=== PATIENT | male | born 1950 | race Caucasian/White ===

== ENCOUNTER → 2017-07-03 | Emergency (ER) | payer MEDICARE, BC ==
[~2017-07-03] VITALS: Ht 172.7 cm; Wt 102.1 kg
[~2017-07-03] MED LIST: ACETAMINOPHEN325 M1 PO; ALEVE220 M1 PO; AMLODIPINE BESY10 MG PO; AMLODIPINE-BEN1 EAC1 PO; ASPIR 8181 MG PO; ATORVASTATIN CA10 MG PO; BUSPIRONE HCL5 MG PO; CLONIDINE HCL0.1 MG PO; CYCLOBENZAPRINE10 MG PO; DEPAKOTE SPRIN125 MG PO; DIATRIZOATE MEGL/DIATRIZOA SOD 120 ML BTL PO ONE; DIATRIZOATE MEGL/DIATRIZOA SOD 30 ML BTL PO ONE; FAMOTIDINE20 MG PO; IOPAMIDOL 300MG/ML 100 ML INFUS..BTL IV ONE; LIDOCAINE HCL 2% JELLY 5 ML TUBE ONE; METFORMIN HCL500 MG PO; METOPROLOL TART50 MG PO; MULTI-VITAMIN1 EACH; NYSTATIN1 EAC1; SODIUM BICARBO650 MG PO; THIAMINE HCL100 MG PO; TRAMADOL-ACETAMI1 EA PO; [UNRECOGNIZED DRUG - OTHER] PO
--- NOTE | 2017-07-03 14:35 | Diagnostic Imaging Report ---
PROCEDURE:REPLACE GASTR TUBE PERCUTANEOUS COMPARISON:None. Preprocedure diagnosis: Altered mental status, dislodged gastrostomy catheter Post procedure diagnosis: Altered mental status, functional gastrostomy catheter Supervisor Data Processing: Adarsh Briseno M.D. Sedation/anesthesia: None Additional medications: None Fluoroscopy time: 1.3 minutes Air Kerma: 91.2 mGy Contrast used: 30 cc Isovue-300 Estimated blood loss: Minimal Blood products administered: None Specimens: None Implants/grafts: 18 [place]ankan balloon retention gastrostomy catheter Complications: No immediate Condition at completion of procedure: Stable Disposition: Return to emergency room FINDINGS: Emergent consent was obtained by client technical support associate and documented in the medical record. The patient was placed in the supine position on the fluoroscopic table. The midepigastric region and the existing gastrostomy stoma were prepped and draped in standard sterile fashion. A 5 Sri [place]ankan angled catheter was gently advanced through the subcutaneous tract and into the stomach under fluoroscopic guidance, with injection of dilute contrast material confirming intragastric positioning. A 0.035 inch Amplatz wire was then advanced through the catheter under fluoroscopic guidance. The catheter was removed over the wire and the tract was dilated. Then, an 18 [place]ankan balloon retention gastrostomy catheter was advanced [id number] and into the stomach under fluoroscopic guidance. The retention balloon was inflated with 6 cc of sterile saline and the catheter was retracted to the anterior gastric wall. The wire was removed. Injection of contrast material confirmed appropriate positioning of the gastrostomy catheter. The catheter was then flushed copiously with sterile saline. The patient tolerated the procedure well without immediate complication. CONCLUSION: Successful fluoroscopic guided replacement of a dislodged percutaneous gastrostomy catheter (18 [place]ankan, balloon retention). The new catheter may be used immediately. Dictated by: Adarsh Briseno M.D. on 07/03/2017 at 14:37 Electronically approved by: Adarsh Briseno M.D. on 07/03/2017 at 14:37
--- NOTE | 2017-07-03 14:35 | Diagnostic Imaging Report ---
PROCEDURE:REPLACE GASTR TUBE PERCUTANEOUS COMPARISON:None. Preprocedure diagnosis: Altered mental status, dislodged gastrostomy catheter Post procedure diagnosis: Altered mental status, functional gastrostomy catheter Lead Java Programmer: Adarsh Briseno M.D. Sedation/anesthesia: None Additional medications: None Fluoroscopy time: 1.3 minutes Air Kerma: 91.2 mGy Contrast used: 30 cc Isovue-300 Estimated blood loss: Minimal Blood products administered: None Specimens: None Implants/grafts: 18 Tanzanian balloon retention gastrostomy catheter Complications: No immediate Condition at completion of procedure: Stable Disposition: Return to emergency room FINDINGS: Emergent consent was obtained by computer support specialist instructor and documented in the medical record. The patient was placed in the supine position on the fluoroscopic table. The midepigastric region and the existing gastrostomy stoma were prepped and draped in standard sterile fashion. A 5 Tanzanian angled catheter was gently advanced through the subcutaneous tract and into the stomach under fluoroscopic guidance, with injection of dilute contrast material confirming intragastric positioning. A 0.035 inch Amplatz wire was then advanced through the catheter under fluoroscopic guidance. The catheter was removed over the wire and the tract was dilated. Then, an 18 Tanzanian balloon retention gastrostomy catheter was advanced [id number] and into the stomach under fluoroscopic guidance. The retention balloon was inflated with 6 cc of sterile saline and the catheter was retracted to the anterior gastric wall. The wire was removed. Injection of contrast material confirmed appropriate positioning of the gastrostomy catheter. The catheter was then flushed copiously with sterile saline. The patient tolerated the procedure well without immediate complication. CONCLUSION: Successful fluoroscopic guided replacement of a dislodged percutaneous gastrostomy catheter (18 Tanzanian, balloon retention). The new catheter may be used immediately. Dictated by: Adarsh Briseno M.D. on 07/03/2017 at 14:37 Electronically approved by: Adarsh Briseno M.D. on 07/03/2017 at 14:37
== END ==
LOC: ER 10:29
DX: Z43.1 Encounter for attention to gastrostomy (principal); R41.82 Altered mental status, unspecified
CPT/HCPCS: 49450; C1887; C1892; J2001; Q9967; 74470; Q9963

== ENCOUNTER 2018-04-11 21:00 | Inpatient (IN) | payer BC, MEDICARE ==
[~2018-04-11] VITALS: Ht 172.7 cm; Wt 100.4 kg
[~2018-04-11 21:00] MED LIST changes: +AMLODIPINE BESY10 MG PEG; -AMLODIPINE BESY10 MG PO; -DIATRIZOATE MEGL/DIATRIZOA SOD 120 ML BTL PO ONE; -DIATRIZOATE MEGL/DIATRIZOA SOD 30 ML BTL PO ONE; -IOPAMIDOL 300MG/ML 100 ML INFUS..BTL IV ONE; -LIDOCAINE HCL 2% JELLY 5 ML TUBE ONE; +METOPROLOL TART50 MG PEG; -METOPROLOL TART50 MG PO
[2018-04-11] MEDS ORDERED: AZITHROMYCIN 500MG/NS 250 ML 250 ML IV STA (21:02)
[2018-04-11] MEDS ORDERED: ACETAMINOPHEN 1000 MG/100 ML IV STA (21:02)
[2018-04-11] MEDS ORDERED: CEFTRIAXONE SOD 1 GM/NS 50 ML 50 ML IV ONE (21:15)
[2018-04-11] MEDS ORDERED: SODIUM CHLORIDE 0.9% 1000ML 1,000 ML IV ONE ×2 (21:15)
[2018-04-11 21:51] LABS: BASOPHILS # (AUTO) 0.1 (0.0-0.1); BASOPHILS % 0.4 % (0.0-1.0); HEMATOCRIT 35.1 % (38.2-49.6); HEMOGLOBIN 11.7 g/dL (14.0-18.0); LYMPHOCYTES # (AUTO) 0.9 (1.0-3.2); LYMPHOCYTES % 6.4 % (18.0-39.1); MEAN CORPUSCULAR HEMOGLOBIN 27.7 pg (28-32); MEAN CORPUSCULAR HGB CONC 33.3 g/dL (31-35); MEAN CORPUSCULAR VOLUME 83.2 fL (81-99); MONOCYTES # (AUTO) 0.6 (0.2-0.8); MONOCYTES % 4.5 % (4.4-11.3); NEUTROPHILS # (AUTO) 11.8 (2.1-6.9); NEUTROPHILS % 88.1 % (38.7-80.0); PLATELET COUNT 351 x10e3/uL (140-360); RED BLOOD COUNT 4.22 x10e6/uL (4.3-5.7); RED CELL DISTRIBUTION WIDTH 14.7 % (11.7-14.4)
[2018-04-11 22:00] LABS: CLARITY,URINE CLOUDY (CLEAR); COLOR,URINE YELLOW (YELLOW); KETONES,URINE NEGATIVE (NEGATIVE); LEUKOCYTE ESTERASE ,URINE 2+ (NEGATIVE); NITRITE,URINE POSITIVE (NEGATIVE); PROTEIN,URINE DIPSTICK 1+ (NEGATIVE)
[2018-04-11 22:01] LABS: AMORPHOUS SEDIMENT,URINE FEW (FEW); BACTERIA,URINE MANY /HPF; BILIRUBIN,URINE NEGATIVE (NEGATIVE); EPITHELIAL CELLS,URINE MANY /LPF; URINE UROBILINOGEN 1 mg/dL (0.2 - 1); WBC,URINE (MAN) >50 /HPF (0-5); YEAST,URINE MODERATE
[2018-04-11 22:06] LABS: ALANINE AMINOTRANSFERASE 29 IU/L (0-55); ALBUMIN/GLOBULIN RATIO 0.5 (0.8-2.0); ALKALINE PHOSPHATASE 112 IU/L (40-150); ANION GAP 14.7 mmol/L (8-16); BLOOD UREA NITROGEN 24 mg/dL (7-26); BUN/CREATININE RATIO 39 (6-25); CALCIUM 8.4 mg/dL (8.4-10.2); CARBON DIOXIDE 23 mmol/L (22-29); CHLORIDE 89 mmol/L (98-107); CREATINE KINASE 328 IU/L (30-200); CREATININE, SERUM 0.62 mg/dL (0.72-1.25); EST GLOMERULAR FILTRATION RATE > 60 ML/MIN (60-); GLUCOSE 211 mg/dL (74-118); POTASSIUM 4.7 mmol/L (3.5-5.1); SODIUM 122 mmol/L (136-145)
--- NOTE | 2018-04-11 23:24 | Diagnostic Imaging Report ---
CHEST SINGLE (PORTABLE), 04/11/2018 9:02 PM Technique: CHEST SINGLE (PORTABLE) Comparison: None available. Clinical history: Fever, low oxygen saturation Findings: See Impression Impression: Limited by portable technique, low lung volumes, motion and overlying chin. Low lung volumes result in accentuation of the cardiomediastinal silhouette and bibasilar vascular crowding/atelectasis. Consider upright PA and lateral or repeat with improved inspiratory effort when feasible. Signed by: Dr Desiree Iglesias MD on 04/11/2018 11:20 PM
[2018-04-11] MEDS ORDERED: ONDANSETRON HCL INJ 2MG/ML 2ML 2 MG/ML VIAL IV PRN (23:45)
[2018-04-11] MEDS ORDERED: DEXTROSE 50% SYRINGE 50 ML IV PRN (23:45)
[2018-04-11] MEDS ORDERED: ACETAMINOPHEN 1000 MG/100 ML IV PRN (23:45)
[2018-04-12] VITALS (14 sets, daily range): BP systolic 90–111; BP diastolic 54–78
[2018-04-12] MEDS: SODIUM CHLORIDE 0.9% 1000ML 1,000 ML IV SCH ×4 (00:37→23:36)
[2018-04-12] MEDS: CEFEPIME 2 GM/NS 0.9% 100 ML 100 ML IV SCH ×2 (00:37→11:25)
--- NOTE | 2018-04-12 08:10 | NUR ---
Patient repositioned to avoid further skin breakdown and new brief applied. Patient placed on wedge and already has waffle underneath. Will continue to monitor patient.
[2018-04-12] MEDS: INSULIN REGULAR, HUMAN 100 UNIT/1 ML 3ML VIAL SQ SCH ×4 (08:17→21:00)
[2018-04-12 08:35] LABS: BASOPHILS % 0.2 % (0.0-1.0); HEMATOCRIT 30.2 % (38.2-49.6); HEMOGLOBIN 10.8 g/dL (14.0-18.0); LYMPHOCYTES # (AUTO) 0.5 (1.0-3.2); LYMPHOCYTES % 5.6 % (18.0-39.1); MEAN CORPUSCULAR HEMOGLOBIN 29.1 pg (28-32); MEAN CORPUSCULAR HGB CONC 35.8 g/dL (31-35); MEAN CORPUSCULAR VOLUME 81.4 fL (81-99); MONOCYTES # (AUTO) 0.4 (0.2-0.8); MONOCYTES % 4.6 % (4.4-11.3); NEUTROPHILS # (AUTO) 7.8 (2.1-6.9); PLATELET COUNT 285 x10e3/uL (140-360); RED BLOOD COUNT 3.71 x10e6/uL (4.3-5.7); RED CELL DISTRIBUTION WIDTH 14.8 % (11.7-14.4)
[2018-04-12 08:51] LABS: ALANINE AMINOTRANSFERASE 25 IU/L (0-55); ALBUMIN 1.8 g/dL (3.5-5.0); ALBUMIN/GLOBULIN RATIO 0.5 (0.8-2.0); ALKALINE PHOSPHATASE 85 IU/L (40-150); ANION GAP 12.9 mmol/L (8-16); BLOOD UREA NITROGEN 20 mg/dL (7-26); BUN/CREATININE RATIO 39 (6-25); CALCIUM 7.7 mg/dL (8.4-10.2); CARBON DIOXIDE 21 mmol/L (22-29); CHLORIDE 97 mmol/L (98-107); CREATININE, SERUM 0.51 mg/dL (0.72-1.25); EST GLOMERULAR FILTRATION RATE > 60 ML/MIN (60-); GLUCOSE 146 mg/dL (74-118); POTASSIUM 3.9 mmol/L (3.5-5.1); SODIUM 127 mmol/L (136-145)
[2018-04-12] MEDS ORDERED: ATORVASTATIN CA10 MG PO (09:34)
[2018-04-12] MEDS ORDERED: DOCUSATE SODIU100 MG PEG (09:34)
[2018-04-12] MEDS ORDERED: BUDESONIDE0.5 MG/2 M NEB (09:34)
[2018-04-12] MEDS ORDERED: ASPIR 8181 MG PEG (09:34)
[2018-04-12] MEDS ORDERED: BUSPIRONE HCL5 MG PEG (09:34)
[2018-04-12] MEDS ORDERED: HUMALOG100 UNIT/1 SC ×2 (09:34→10:23)
[2018-04-12] MEDS ORDERED: PANTOPRAZOLE SO40 MG PEG (09:42)
[2018-04-12] MEDS ORDERED: DIGOXIN125 MCG PEG (09:42)
[2018-04-12] MEDS ORDERED: FUROSEMIDE40 MG PEG (09:42)
[2018-04-12] MEDS ORDERED: CITALOPRAM HBR20 MG PEG (09:42)
[2018-04-12] MEDS ORDERED: NAMENDA10 MG PEG (09:42)
[2018-04-12] MEDS ORDERED: GLIMEPIRIDE2 MG PEG (09:42)
[2018-04-12] MEDS ORDERED: FENOFIBRATE145 MG PEG (09:42)
[2018-04-12] MEDS ORDERED: KLOR-CON M2020 MEQ PEG (09:42)
[2018-04-12] MEDS ORDERED: METFORMIN HCL500 MG PEG (09:42)
[2018-04-12] MEDS ORDERED: RISPERIDONE0.5 MG PO (09:42)
[2018-04-12] MEDS ORDERED: ZYPREXA5 MG PEG ×2 (09:44)
[2018-04-12] MEDS ORDERED: ZINC SULFATE220 M1 PEG (09:44)
[2018-04-12] MEDS ORDERED: THIAMINE H100 MG/1 M PEG (10:23)
[2018-04-12] MEDS ORDERED: PEPCID20 MG PEG (10:23)
[2018-04-12] MEDS ORDERED: SODIUM BICARBO325 MG PEG (10:23)
[2018-04-12] MEDS ORDERED: METOPROLOL TART50 MG PEG (10:23)
[2018-04-12] MEDS ORDERED: ACETAMINOPHEN325 M1 PEG (10:23)
[2018-04-12] MEDS ORDERED: VITAMIN C500 M1 PEG (10:23)
[2018-04-12] MEDS ORDERED: ULTRAM50 MG PEG (10:23)
[2018-04-12] MEDS ORDERED: POLYETHYLENE GLY1 GM PEG (10:23)
[2018-04-12] MEDS ORDERED: NYSTATIN1 EAC1 TOP (10:23)
[2018-04-12] MEDS ORDERED: MULTIPLE VITAM1 EAC1 PEG (10:23)
[2018-04-12] MEDS ORDERED: VALPROIC A250 MG/5 M PEG (10:23)
[2018-04-12] MEDS ORDERED: NORVASC5 MG PEG (10:23)
[2018-04-12] MEDS ORDERED: DAKIN'S473 M1 (10:23)
[2018-04-12 10:52] LABS: BAND NEUTROPHILS % (MANUAL) 2 %; LYMPHOCYTES % (MANUAL) 3 % (19-48); NEUTROPHILS % (MANUAL) 95 % (40-74); PLATELET ESTIMATE ADEQUATE; PLATELET MORPHOLOGY COMMENT NORMAL; RBC MORPHOLOGY COMMENT NORMAL
--- NOTE | 2018-04-12 11:32 | NUR ---
Patient repositioned at this time to avoid further skin breakdown. No distress noted. Will continue to monitor patient.
[2018-04-12] MEDS ORDERED: VANCOMYCIN 1GM/NS 250 ML 250 ML IV SCH (12:30)
--- NOTE | 2018-04-12 14:03 | History and Physical ---
CHIEF COMPLAINT: Fever. HISTORY OF PRESENT ILLNESS: This is a 67-year-old white man who was transferred from a local penitentiary namely [facility] to [facility] because of high fever. In the emergency room, patient was found to have white blood cell count of 13,400 with 88% segmented neutrophils. This morning, the patient had white blood count of 8700 with 95% segmented neutrophils and 2% bands. Urinalysis revealed cloudy yellow urine with 4+ blood, 1+ protein, 2+ leukocyte esterase, less than 20 red blood cells per high-powered field, greater than 50 white blood cells per high-powered field, and many bacteria. Patient's sodium was 122. Patient's BUN and creatinine was 24 and 0.62 respectively. Patient's lactic acid level was elevated at 19.1, which is high end of normal. Influenza type A and B antigen was negative. The patient had chest x-ray done in the emergency room, which revealed low lung volumes resulting in bibasilar vascular crowding/atelectasis. The patient was admitted for further evaluation and treatment. REVIEW OF SYSTEMS GENERAL: Fever for the last few days according to the penitentiary. His mentation has not changed. He has advanced dementia from an old stroke. HEENT: No documentation of any facial drooping. CARDIOVASCULAR: No documentation of any hypoxia from the penitentiary. GI: No documentation of any nausea, vomiting, or diarrhea. : The patient has indwelling Anguiano catheter and was diagnosed with urinary tract infection. NEUROMUSCULAR: Old stroke with dense right hemiparesis. He is bedbound. ALLERGIES: PENICILLIN. HOME MEDICATIONS 1. Acetaminophen 650 mg every 6 hours p.r.n. fever or pain. 2. Amlodipine 10 mg daily. 3. Vitamin C 500 mg daily. 4. Aspirin 81 mg daily. 5. Atorvastatin 20 mg every night. 6. Budesonide nebulized treatment every 12 hours. 7. BuSpar 5 mg b.i.d. 8. Clonidine 0.1 mg every night p.r.n. high blood pressure. 9. Docusate 100 mg daily. 10. Famotidine 20 mg daily. 11. Humalog insulin sliding scale. 12. Metoprolol tartrate 50 mg daily. 13. Multivitamin once daily. 14. Nystatin powder to affected area daily. 15. Zyprexa 2.5 mg at bedtime and every 6 hours as needed for psychosis. 16. Pantoprazole 40 mg daily. 17. Polyethylene glycol 17 grams b.i.d. 18. Sodium bicarbonate 325 mg t.i.d. 19. Thiamine 100 mg daily. 20. Tramadol 50 mg every 6 hours. 21. Valproic acid 250 mg b.i.d. 22. Zinc sulfate 220 mg daily. PAST MEDICAL HISTORY 1. Cerebrovascular disease (old stroke with dense right hemiparesis). 2. Severe vascular dementia. 3. History of chronic alcoholism. 4. Obesity, BMI 34. 5. Type 2 diabetes. 6. Hypothyroid disease. 7. GERD. 8. Hyperlipidemia. PAST SURGICAL HISTORY: PEG tube placement. FAMILY HISTORY: Unknown. SOCIAL HISTORY: He apparently has family members, but he is currently living in a local penitentiary, namely [facility]. He was a former heavy alcohol drinker. PHYSICAL EXAMINATION GENERAL: He is arousable. He is nonverbal. Does not appear to be in any distress. VITAL SIGNS: Height 5 feet 8 inches, weight is 225 pounds, BMI 34, blood pressure is 105/56, pulse 72, respiratory rate 22, oxygen saturation 109% on room air. Temperature currently is 98.8. On arrival to the emergency room, it was 100.5. INTEGUMENT: Skin is warm and dry. He has slight pallor. Patient has a large stage 4 sacral decubitus ulcer. HEENT: Anicteric sclerae with moist mucous membranes. He has no facial drooping. He is aphasic. NECK: Supple. No evidence of jugular venous distention. CARDIOVASCULAR: Distant heart sounds. Tachycardic. Regular rhythm. LUNGS: Patient has crackles and rhonchi in the bilateral lung manning, more pronounced in the left. ABDOMEN: Soft. He has PEG tube in place. EXTREMITIES: He has contractures to the left upper and lower extremity. Stage 4 sacral decubitus ulcer with sacral bone exposure and copious malodorous drainage. NEUROLOGIC: He has obvious right hemiparesis. He is bedbound. DIAGNOSES 1. Sepsis from pneumonia likely gram negative xiao. 2. Urinary tract infection. 3. Hyponatremia. 4. Stage 4 sacral decubitus ulcer. 5. Cerebrovascular disease (old cerebrovascular accident with dense right hemiparesis). 6. Severe vascular dementia. 7. History of previous heavy alcohol drinking. PLAN 1. Admit to intensive care unit. 2. Intravenous fluids. 3. Follow up blood and urine cultures. 4. Intravenous antibiotics. 5. Intravenous saline. 6. Order central line placement since patient may require intravenous vasopressors. 7. I spoke at length with the patient's adult daughter who is his medical power of document review attorney, namely Ms. Belkis Sandoval. 8. The adult daughter states at this time the patient is a full resuscitation status, but she will discuss this issue with her other siblings. I spent an hour and 15 minutes in the care of this intensive care unit patient. Job#: [id number] HAILEY MTDD
--- NOTE | 2018-04-12 16:15 | NUR ---
paged dr. schaffer to notify about positive blood cultures, also unable to place picc d/t contractures. ir consult ordered for tmrw
[2018-04-13] VITALS (22 sets, daily range): BP systolic 93–125; BP diastolic 42–68
--- NOTE | 2018-04-13 01:45 | NUR ---
MD Rothman paged for renewal of IV acetaminophen, awaiting response.
[2018-04-13] MEDS: CEFEPIME 2 GM/NS 0.9% 100 ML 100 ML IV SCH ×2 (01:55→12:17)
[2018-04-13] MEDS: VANCOMYCIN 1GM/NS 250 ML 250 ML IV SCH ×2 (03:48→15:36)
--- NOTE | 2018-04-13 04:20 | NUR ---
MD Rothman paged second time for renewal of IV acetaminophen, awaiting response.
[2018-04-13 04:55] LABS: BASOPHILS % 0.3 % (0.0-1.0); EOSINOPHILS % 0.2 % (0.0-6.0); LYMPHOCYTES # (AUTO) 0.7 (1.0-3.2); MEAN CORPUSCULAR HEMOGLOBIN 29.4 pg (28-32); MEAN CORPUSCULAR HGB CONC 34.5 g/dL (31-35); MEAN CORPUSCULAR VOLUME 85.3 fL (81-99); MONOCYTES # (AUTO) 0.5 (0.2-0.8); MONOCYTES % 5.8 % (4.4-11.3); NEUTROPHILS # (AUTO) 7.8 (2.1-6.9); PLATELET COUNT 295 x10e3/uL (140-360); RED CELL DISTRIBUTION WIDTH 14.8 % (11.7-14.4)
--- NOTE | 2018-04-13 05:00 | NUR ---
MD Rothman called back. Notified of continuing moans and FLACC scores, stable BP, UOP averaging 25 mL/hr vs input, groin yeast, current microbiology results, description of sacral decub, and leaking PEG tube. gave analgesia orders, states that he will review antibiotics, IVF, and other orders when he rounds. Addendum: 04/13/18 at 0723 by Vickie Nicolas RN states that GI and ID may be consulted later, but not until he sees further labs
[2018-04-13 05:07] LABS: INR 1.08
[2018-04-13 05:14] LABS: ALANINE AMINOTRANSFERASE 28 IU/L (0-55); ALBUMIN 1.8 g/dL (3.5-5.0); ALBUMIN/GLOBULIN RATIO 0.5 (0.8-2.0); ALKALINE PHOSPHATASE 80 IU/L (40-150); ANION GAP 13.4 mmol/L (8-16); BLOOD UREA NITROGEN 16 mg/dL (7-26); BUN/CREATININE RATIO 32 (6-25); CALCIUM 7.8 mg/dL (8.4-10.2); CARBON DIOXIDE 21 mmol/L (22-29); CHLORIDE 98 mmol/L (98-107); EST GLOMERULAR FILTRATION RATE > 60 ML/MIN (60-); GLUCOSE 84 mg/dL (74-118); POTASSIUM 3.4 mmol/L (3.5-5.1); SODIUM 129 mmol/L (136-145)
[2018-04-13] MEDS ORDERED: ACETAMINOPHEN 325 MG SUPP PR PRN (05:15)
[2018-04-13] MEDS: HYDROMORPHONE 2MG/ML 2 MG/ML ML IV PRN ×3 (05:25→23:07)
[2018-04-13] MEDS: INSULIN REGULAR, HUMAN 100 UNIT/1 ML 3ML VIAL SQ SCH ×3 (06:35→17:10)
[2018-04-13] MEDS: SODIUM CHLORIDE 0.9% 1000ML 1,000 ML IV SCH ×3 (07:41→23:36)
--- NOTE | 2018-04-13 10:38 | Diagnostic Imaging Report ---
CHEST SINGLE (PORTABLE), 04/13/2018 7:00 AM Technique: CHEST SINGLE (PORTABLE) Comparison: 04/11/2018 Clinical history: Pneumonia Findings: See Impression Impression: Limited portable technique with motion. No significant interval change. Very low lung volumes accentuate the cardiomediastinal silhouette and result in bilateral vascular crowding/atelectasis. Signed by: Dr Desiree Iglesias MD on 04/13/2018 6:42 AM
--- NOTE | 2018-04-13 15:20 | NUR ---
WOUND CARE CONSULTATION: INITIAL EVALUATION Patient admitted from [facility] for Fever, Hyponatremia, UTI. Sacral Wound Stage IV. HX: Contractures, PEG+, Anguiano. IV ABX in progress LABS: WBC9.12 HGB10 HCT29 NEUT%85 Alb1.8 GLU84 WC Consulted for Sacral Stage IV PU. Delmer Score 9 Alternating Pressure Mattress in Place Strict PUP. Patient Visit: - Patient in Bed awake-unable to make needs known. - Contracted x4 - HOB elevated 30 degrees. - PEG + -Left Foot 5th Met Head - non-blanchable redness. -Abdominal Fold - Dermatologic Rash - Milk white residue with erythema. -Sacral - Stage IV- Pressure Ulcer- palpable bone, 20% slough with scattered areas of DTI. 80% granulation/ fibrotic tissue. -Left Hip - Non- Blanchable Redness. IMPRESSION: 1. Left Foot 5th Met Head - Stage I - Pressure Ulcer - POA. 2. Abdominal Fold - Dermatologic Rash - Yeast. 3. Sacral - Stage IV- Pressure Ulcer- POA 4. Left Hip - Stage 1 Pressure Ulcer - POA RECOMMENDATION: 1. Left Foot 5th Met Head - Stage I - Pressure Ulcer - POA: - Cleanse wound with NS and 4x4 Gauze. - Apply Venelex Ointment and cover with Allevyn Foam Heel Dressing Daily 2. Abdominal Fold - Dermatologic Rash - Yeast. - Cleanse area with Mild Soap and Water and Pat Dry Thoroughly. - Apply Nystatin Powder BID and PRN Soiling. 3. Sacral - Stage IV- Pressure Ulcer- POA - Cleanse wound with NS and 4x4 Gauze. - Apply Medihoney, then Lightly pack with Algisite and cover with Allevyn Foam Sacrum Dressing Daily 4. Left Hip - Stage 1 Pressure Ulcer - POA: - Cleanse wound with NS and 4x4 Gauze. - Apply Venelex Ointment and cover with Allevyn Foam Heel Dressing Daily 5. Continue Alternating Pressure Air Mattress 6. Continue Bilateral Heel Protectors - Offload Heels with Pillows while in bed. 7. Turn and Reposition every 2 hours ( "Bridge"./ offload sacrum with pillows/ foam wedges to reduce pressure to sacrum) Thank you for consulting with [facility]. DC PLANNING: [facility]. Addendum: 04/13/18 at 1536 by Demarco Jose RN Amended: Links added. Addendum: 04/15/18 at 1556 by Demarco Jose RN Re: Michelle not on formulary. Change TX requested. Sacral Wound - Started- Silvadene Soaked 4x4 gauze and Cover with Allevyn Foam Sacrum Dressing Daily.
--- NOTE | 2018-04-13 15:23 | Diagnostic Imaging Report ---
EXAMINATION: CHEST XRAY LINE PLACEMENT INDICATION: Right IJ central line placement. COMPARISON: Chest radiograph 04/13/2018. FINDINGS: TUBES and LINES: Interval placement of a right IJ non-tunneled central line which terminates in the expected location of the right atrium, accounting for hypoinflation. LUNGS: Lungs are hypoinflated. Patchy bibasilar opacities, likely atelectasis. No evidence of lobar consolidation or pulmonary edema. PLEURA: No pleural effusion or pneumothorax. HEART AND MEDIASTINUM: The cardiomediastinal silhouette is unremarkable. BONES AND SOFT TISSUES: No acute osseous abnormality. UPPER ABDOMEN: No free air under the diaphragm. IMPRESSION: Interval placement of a right IJ non-tunneled central line which terminates in the expected location of the right atrium, accounting for hypoinflation. Suggest catheter retraction by approximately 2-3 cm. No evidence of pneumothorax. Signed by: Dr. Luda Mathur MD on 04/13/2018 3:19 PM
[2018-04-13] MEDS: NYSTATIN 15 GM POWDER UD BTL TOP SCH (17:11)
--- NOTE | 2018-04-13 17:23 | Diagnostic Imaging Report ---
EXAMINATION: CHEST XRAY LINE PLACEMENT INDICATION: Right IJ catheter COMPARISON: April 13, 2018 at 1433 hours FINDINGS: TUBES and LINES: Prior placement of a right IJ non-tunneled central line which terminates in the expected location of the right atrial/superior vena cava junction, accounting for hypoinflation. LUNGS: Lungs are hypoinflated. Patchy bibasilar opacities, likely atelectasis. No evidence of lobar consolidation or pulmonary edema. PLEURA: No pleural effusion or pneumothorax. HEART AND MEDIASTINUM: The cardiomediastinal silhouette is unremarkable. BONES AND SOFT TISSUES: No acute osseous abnormality. UPPER ABDOMEN: No free air under the diaphragm. IMPRESSION: Prior placement of a right IJ non-tunneled central line which terminates in the expected location of the right atrial/superior vena cava junction, accounting for hypoinflation. No evidence of pneumothorax. Signed by: Dr. Augustin Manning M.D. on 04/13/2018 5:20 PM
--- NOTE | 2018-04-13 18:35 | Diagnostic Imaging Report ---
Procedure: Right internal jugular non-tunneled central venous catheter placement with ultrasound guidance electrostatic paint operator: Luda Mathur MD Pre-operative diagnosis: Requiring central venous access Post-operative diagnosis: Status post central venous access Sedation: Local Additional Medications: Lidocaine 1% for local anesthesia Estimated blood loss: None Specimens: None Implants: 7 Fr x 16 cm triple lumen non-tunneled central venous catheter TECHNIQUE/FINDINGS: Informed consent was obtained from the patient and documented in the medical record after discussion of risks and benefits. The patient was placed in the supine position. Preliminary sonographic evaluation of the right neck confirmed a patent and compressible right internal jugular vein. A permanent sonographic image was stored for the medical record. The neck was then prepped and draped in a standard sterile fashion. Subsequently, 1% lidocaine was infiltrated into the skin and subcutaneous tissues for local anesthesia. Then under continuous sonographic guidance, a 21 gauge needle was advanced into the right internal jugular vein and an .018'' wire was placed. A 5 Fr micropuncture sheath was placed and the existing wire was exchanged for an .035'' Amplatz wire. The tract was sequentially dilated. Then, a 7 Fr x 16 cm triple lumen central venous catheter was advanced. The wire was then removed. Each lumen was tested and showed adequate bidirectional flow. The catheter was secured to the skin with Monocryl, flushed with saline, and covered by a sterile dressing. No evidence of immediate complication. IMPRESSION: Placement of a right IJ non-tunneled triple lumen central venous catheter with ultrasound guidance as above. Signed by: Dr. Luda Mathur MD on 04/13/2018 6:32 PM
[2018-04-14] VITALS (16 sets, daily range): BP systolic 91–113; BP diastolic 50–69
[2018-04-14] MEDS: CEFEPIME 2 GM/NS 0.9% 100 ML 100 ML IV SCH ×2 (00:37→12:06)
[2018-04-14] MEDS: SODIUM CHLORIDE 0.9% 1000ML 1,000 ML IV SCH ×3 (02:08→23:38)
[2018-04-14] MEDS: VANCOMYCIN 1GM/NS 250 ML 250 ML IV SCH ×2 (03:47→14:57)
[2018-04-14] MEDS: INSULIN REGULAR, HUMAN 100 UNIT/1 ML 3ML VIAL SQ SCH ×4 (06:00→18:00)
[2018-04-14] MEDS: HYDROMORPHONE 2MG/ML 2 MG/ML ML IV PRN ×3 (06:20→19:59)
[2018-04-14] MEDS: NYSTATIN 15 GM POWDER UD BTL TOP SCH ×2 (06:32→17:09)
[2018-04-14 07:02] LABS: BASOPHILS % 0.4 % (0.0-1.0); EOSINOPHILS % 0.4 % (0.0-6.0); HEMATOCRIT 28.4 % (38.2-49.6); HEMOGLOBIN 9.2 g/dL (14.0-18.0); LYMPHOCYTES % 11.6 % (18.0-39.1); MEAN CORPUSCULAR HEMOGLOBIN 27.8 pg (28-32); MEAN CORPUSCULAR HGB CONC 32.4 g/dL (31-35); MEAN CORPUSCULAR VOLUME 85.8 fL (81-99); MONOCYTES # (AUTO) 0.5 (0.2-0.8); MONOCYTES % 6.3 % (4.4-11.3); NEUTROPHILS # (AUTO) 6.6 (2.1-6.9); NEUTROPHILS % 80.6 % (38.7-80.0); PLATELET COUNT 295 x10e3/uL (140-360); RED BLOOD COUNT 3.31 x10e6/uL (4.3-5.7); RED CELL DISTRIBUTION WIDTH 14.9 % (11.7-14.4)
[2018-04-14 07:23] LABS: ANION GAP 12.8 mmol/L (8-16); BLOOD UREA NITROGEN 14 mg/dL (7-26); BUN/CREATININE RATIO 30 (6-25); CALCIUM 7.5 mg/dL (8.4-10.2); CARBON DIOXIDE 21 mmol/L (22-29); CHLORIDE 99 mmol/L (98-107); CREATININE, SERUM 0.46 mg/dL (0.72-1.25); EST GLOMERULAR FILTRATION RATE > 60 ML/MIN (60-); GLUCOSE 70 mg/dL (74-118); SODIUM 130 mmol/L (136-145)
[2018-04-14 07:35] LABS: POTASSIUM 2.8 mmol/L (3.5-5.1)
--- NOTE | 2018-04-14 07:55 | NUR ---
Dr Dunlap paged about low potassium. awaiting return call.
[2018-04-14] MEDS ORDERED: POTASSIUM CHLORIDE 20MEQ/100ML 100 ML IV ONE (09:00)
[2018-04-14] MEDS: POTASSIUM CHLORIDE 20MEQ/15ML UDC NG SCH ×3 (12:07→17:09)
--- NOTE | 2018-04-14 12:23 | NUR ---
tube feed started at 20cc/hr and will increase as patient tolerates.
--- NOTE | 2018-04-14 14:14 | NUR ---
ORDER RECEIVED FOR LT[facility] EVAL. PT UNABLE TO SPEAK. [facility]PO[facility] IS PT'S DTR, CANDIS DIEZ @ [phone]. LEFT BUSINESS CARD AT THE BEDSIDE. CALL MADE TO CANDIS DIEZ. EXPLAINED THE PURPOSE OF THE CALL. STATES SHE WAS AWARE OF LTAC EVAL AND WOULD LIKE FOR HER FATHER TO GO TO [facility] [address]. CHOICE LETTER WAS SIGNED AND COSIGNED BY MILAGROS MANZO. CONTACTED [facility] FOR EVAL.
--- NOTE | 2018-04-14 14:36 | NUR ---
Nutrition Intervention Note RD Recommendation(s) for Physician: - Recommend TF of Glucerna 1.2 at 20 ml/hr, advance as tolerated to goal rate of 60 ml/hr (to provide 1728 kcal and 86 gm protein). - Water flushes and fluid management per MD. - Consider Hardy 1 packet BID to promote wound healing. - Recommend Vitamin C and Zinc Sulfate to promote wound healing. Plan of Care: RD following, TF rec's, monitoring for tolerance and adequacy Nutrition reason for involvement: Nutrition Risk Trigger RD Assessment 04/14: 67 YOM admitted from [facility] for fever, pt seen today per PEG on admit and requiring EN. Pt with hx of severe dementia and no family at bedside at time of visit, unable to obtain nutrition hx. Wound care assessment noted, pt with multiple wounds upon admit. Pt discussed during am rounds. Chart reviewed. TF rec's provided and discussed with RN. Will monitor and continue to follow. Principal Problems/Diagnoses: fever, hyponatremia, UTI PMH: CVA with R HP, severe vascular dementia, DM2, HLD, GERD, hypothyroidism GI: WDL Skin: sacral stage IV PU, L hip stage I PU, L foot 5th metatarsal stage I PU Labs: 04/14: Na 130, K 2.8, BUN 14, Cr 0.46, Gluc 70, POC Gluc 74-79 Meds: K replacement, abx, insulin, zofran IVF: NS at 125 ml/hr Ht: 225 lb Wt: 68 in BMI: 34.2 IBW: 154 lb Malnutrition Evaluation (04/14/18) The patient does not meet criteria for a specified degree of malnutrition at this time. Will re-evaluate at follow-up as appropriate. Nutrition Prescription (Diet Order): NPO Estimated Nutritional Needs: 7209-3844 calories/day (22-25 kcal/kg IBW) 70-105 g protein/day (1.5-2 g pro/kg IBW) Diet Adequacy: Not meeting calorie needs, Not meeting protein needs Diet Education Needs Assessment: Diet education not indicated, patient on temporary/transition diet. Pt on EN per PEG at [facility]. Nutrition Care Level: Mod Nutrition Diagnosis: Inadequate energy and protein intake related to impaired gastric passage as evidenced by PEG upon admit requiring EN. Goal: Patient will meet 75-100% of estimated needs by follow up Progress: N/A Interventions: Composition, Rate, Route, Liquid supplement, Multivitamin/mineral supplement therapy, Collaboration with other providers Monitoring/Evaluation: Total energy intake, Total protein intake, Formula/Solution, Liquid supplement, Prescription medication Signed: Leidy Arango RD, [facility], [facility]
[2018-04-14] MEDS: BALSAM PERU/CASTOR OIL 60 GM OINT...G. TP SCH (17:09)
--- NOTE | 2018-04-14 17:44 | NUR ---
called director rebecca about hospital not having medihoney in stock. she instructed me not to use xenaderm as exchange and would get a hold of nurse on site and have hime come make adjustments to treatment. awaiting further instruction. all other wound care done with exception of sacrum.
--- NOTE | 2018-04-14 22:20 | NUR ---
Report called to [facility] on MS2. Pt taken upstairs on bed, no VSS, no changes noted
--- NOTE | 2018-04-14 22:28 | NUR ---
RECEIVED PT FROM ICU TO ROOM 204 VIA HOSPITAL BED.NO S/S OF ACUTE DISTRESS NOTED.PT ON 2 LPM VIA NC.VITAL SIGNS CHECKED.PT HAS RIGHT IJ TRIPLE LUMEN INTACT AND PATENT.PT ALSO HAS PIV TO LEFT HAND INTACT AND PATENT.PEG TUBE INTACT WITH GLUCERNA 1.2 RUNNING AT 30CC/HR.RESIDUAL CHECKED AT THIS TIME,NONE NOTED.PT HAS BREWER CATH DRAINING CLEAR LIGHT KAYE URINE.AIR PUMP APPLIED TO MATTRESS.BED POSITIONED IN THE LOWEST/LOCKED.CALL LIGHT WITHIN REACH.WILL CONTINUE TO MONITOR.
[2018-04-15] VITALS (7 sets, daily range): BP systolic 93–128; BP diastolic 57–74
[2018-04-15] MEDS: HYDROMORPHONE 2MG/ML 2 MG/ML ML IV PRN ×2 (02:00→11:58)
[2018-04-15] MEDS: VANCOMYCIN 1GM/NS 250 ML 250 ML IV SCH ×2 (03:33→16:12)
[2018-04-15 05:25] LABS: BASOPHILS % 0.5 % (0.0-1.0); EOSINOPHILS # (AUTO) 0.1 (0.0-0.4); EOSINOPHILS % 1.1 % (0.0-6.0); HEMATOCRIT 27.9 % (38.2-49.6); HEMOGLOBIN 9.2 g/dL (14.0-18.0); LYMPHOCYTES # (AUTO) 1.1 (1.0-3.2); LYMPHOCYTES % 17.2 % (18.0-39.1); MEAN CORPUSCULAR HEMOGLOBIN 28.3 pg (28-32); MEAN CORPUSCULAR VOLUME 85.8 fL (81-99); MONOCYTES # (AUTO) 0.4 (0.2-0.8); MONOCYTES % 6.2 % (4.4-11.3); NEUTROPHILS # (AUTO) 4.9 (2.1-6.9); NEUTROPHILS % 74.4 % (38.7-80.0); PLATELET COUNT 342 x10e3/uL (140-360); RED BLOOD COUNT 3.25 x10e6/uL (4.3-5.7); RED CELL DISTRIBUTION WIDTH 14.9 % (11.7-14.4)
[2018-04-15 05:44] LABS: ANION GAP 10.2 mmol/L (8-16); BLOOD UREA NITROGEN 7 mg/dL (7-26); BUN/CREATININE RATIO 15 (6-25); CALCIUM 7.4 mg/dL (8.4-10.2); CARBON DIOXIDE 25 mmol/L (22-29); CHLORIDE 97 mmol/L (98-107); CREATININE, SERUM 0.47 mg/dL (0.72-1.25); EST GLOMERULAR FILTRATION RATE > 60 ML/MIN (60-); GLUCOSE 122 mg/dL (74-118); MAGNESIUM 1.4 MG/DL (1.3-2.1); PHOSPHORUS 2.4 MG/DL (2.3-4.7); POTASSIUM 3.2 mmol/L (3.5-5.1); SODIUM 129 mmol/L (136-145)
--- NOTE | 2018-04-15 06:00 | NUR ---
PT RESTING IN BED WITH NO S/S OF DISTRESS.RESIDUAL CHECKED,NONE NOTED.FEEDING RATE INCREASED FROM 30CC/HR TO 40 CC/HR.BED IN LOWEST/LOCKED POSITION.WILL CONTINUE TO MONITOR.
[2018-04-15] MEDS: INSULIN REGULAR, HUMAN 100 UNIT/1 ML 3ML VIAL SQ SCH ×4 (06:27→18:00)
--- NOTE | 2018-04-15 07:21 | NUR ---
REPORT GIVEN TO ONCOMING NURSE,WALKING ROUNDS MADE.PT RESTING IN BED WITH NO S/S OF DISTRESS.
[2018-04-15] MEDS: NYSTATIN 15 GM POWDER UD BTL TOP SCH ×2 (09:15→16:12)
[2018-04-15] MEDS: BALSAM PERU/CASTOR OIL 60 GM OINT...G. TP SCH (09:50)
[2018-04-15] MEDS: SODIUM CHLORIDE 0.9% 1000ML 1,000 ML IV SCH ×2 (11:32→21:13)
[2018-04-15] MEDS: CEFEPIME 2 GM/NS 0.9% 100 ML 100 ML IV SCH ×2 (11:57)
[2018-04-15] MEDS: SILVER SULFADIAZINE 50GM CREAM TOP SCH (18:55)
--- NOTE | 2018-04-15 19:00 | NUR ---
PT IN BED, ALERT BUT NON VERBAL, CONTINUE ON IV ANTIBIOTICS AND TUBE FEEDING. REPOSITION EVERY TWO HOURS. PAIN MEDS GIVEN NEEDED.
--- NOTE | 2018-04-15 19:25 | NUR ---
patient received. Patient is resting in bed. Resp even and unlabored. No acute distress noted. tube feeding noted infusing at 50cc/hr. IV fluid infusing noted. perry in place, clear and yellow urine noted. call light within reach. instruct to call for assistance. bed low/locked. continue to monitor closely
--- NOTE | 2018-04-15 20:35 | NUR ---
hob elevated. no residual noted from tube feeding. patient tolerated well. continue tube feeding at 50ml/hr
--- NOTE | 2018-04-15 20:45 | NUR ---
put patient on tele and pulse ox monitor. Patient has SR with HR 76. continue to monitor closely
[2018-04-16] VITALS (7 sets, daily range): BP systolic 109–156; BP diastolic 60–81
[2018-04-16] MEDS: CEFEPIME 2 GM/NS 0.9% 100 ML 100 ML IV SCH ×3 (00:23→23:30)
[2018-04-16] MEDS: INSULIN REGULAR, HUMAN 100 UNIT/1 ML 3ML VIAL SQ SCH ×4 (00:30→18:55)
--- NOTE | 2018-04-16 02:40 | NUR ---
reposition patient. dressing changed to sacrum.
[2018-04-16] MEDS: VANCOMYCIN 1GM/NS 250 ML 250 ML IV SCH ×2 (03:22→16:05)
[2018-04-16] MEDS: HYDROMORPHONE 2MG/ML 2 MG/ML ML IV PRN (06:24)
[2018-04-16] MEDS: SILVER SULFADIAZINE 50GM CREAM TOP SCH ×2 (08:57→16:31)
[2018-04-16] MEDS: NYSTATIN 15 GM POWDER UD BTL TOP SCH ×2 (08:57→16:31)
[2018-04-16] MEDS: BALSAM PERU/CASTOR OIL 60 GM OINT...G. TP SCH (08:57)
[2018-04-16] MEDS: SODIUM CHLORIDE 0.9% 1000ML 1,000 ML IV SCH ×2 (08:57→23:15)
--- NOTE | 2018-04-16 09:28 | NUR ---
Ben Rose with [facility], still pending insurance authorization.
[2018-04-16] MEDS ORDERED: POTASSIUM CHLORIDE 10MEQ EA PEG ONE (11:15)
[2018-04-16] MEDS ORDERED: POTASSIUM CHLORIDE 20MEQ/15ML UDC PEG NR (11:30)
--- NOTE | 2018-04-16 18:07 | NUR ---
PT BREWER LEAKING, NEW BREWER INSERTED, INTACT AND DRAINING CLEAR URINE. DRESSING CHANGED ON WOUND ON SACRUM, PEG TUBE SITE DRESSING CHANGED. CONTINUE ON IV ANTIBIOTICS. PT IS NON VERBAL, PAIN MEDS GIVEN ORDERED.
--- NOTE | 2018-04-16 19:20 | NUR ---
patient received. Patient is resting in bed. HOB elevated. Resp even and unlabored. No acute distress noted. tube feeding noted infusing at 50cc/hr. IV fluid infusing noted. Anguiano in place, clear and yellow urine noted. call light within reach. instruct to call for assistance. bed low/locked. continue to monitor closely
[2018-04-16] MEDS ORDERED: POTASSIUM CHLORIDE 20MEQ/15ML UDC PEG ONE (19:30)
[2018-04-17] VITALS (8 sets, daily range): BP systolic 116–135; BP diastolic 59–76
[2018-04-17] MEDS: INSULIN REGULAR, HUMAN 100 UNIT/1 ML 3ML VIAL SQ SCH ×4 (00:45→18:17)
[2018-04-17] MEDS: VANCOMYCIN 1GM/NS 250 ML 250 ML IV SCH ×2 (04:10→16:13)
--- NOTE | 2018-04-17 07:00 | NUR ---
SHIFT REPORT DONE WHILE ROUNDING ON PT WITH NIGHT RN. PT DENIES NEEDS AT THIS TIME.
[2018-04-17 07:26] LABS: BASOPHILS % 0.2 % (0.0-1.0); EOSINOPHILS # (AUTO) 0.1 (0.0-0.4); EOSINOPHILS % 1.7 % (0.0-6.0); HEMOGLOBIN 10.1 g/dL (14.0-18.0); LYMPHOCYTES # (AUTO) 1.1 (1.0-3.2); MEAN CORPUSCULAR HEMOGLOBIN 27.7 pg (28-32); MEAN CORPUSCULAR HGB CONC 32.6 g/dL (31-35); MEAN CORPUSCULAR VOLUME 85.2 fL (81-99); MONOCYTES # (AUTO) 0.3 (0.2-0.8); MONOCYTES % 4.5 % (4.4-11.3); NEUTROPHILS % 75.7 % (38.7-80.0); PLATELET COUNT 356 x10e3/uL (140-360); RED BLOOD COUNT 3.64 x10e6/uL (4.3-5.7); RED CELL DISTRIBUTION WIDTH 14.8 % (11.7-14.4)
[2018-04-17 07:44] LABS: ANION GAP 9.6 mmol/L (8-16); BLOOD UREA NITROGEN 5 mg/dL (7-26); BUN/CREATININE RATIO 11 (6-25); CALCIUM 7.8 mg/dL (8.4-10.2); CARBON DIOXIDE 28 mmol/L (22-29); CHLORIDE 94 mmol/L (98-107); CREATININE, SERUM 0.44 mg/dL (0.72-1.25); EST GLOMERULAR FILTRATION RATE > 60 ML/MIN (60-); GLUCOSE 147 mg/dL (74-118); POTASSIUM 3.6 mmol/L (3.5-5.1); SODIUM 128 mmol/L (136-145)
[2018-04-17] MEDS: BALSAM PERU/CASTOR OIL 60 GM OINT...G. TP SCH (08:40)
[2018-04-17] MEDS: SILVER SULFADIAZINE 50GM CREAM TOP SCH ×2 (08:40→17:40)
[2018-04-17] MEDS: SODIUM CHLORIDE 0.9% 1000ML 1,000 ML IV SCH ×2 (08:40→16:13)
[2018-04-17] MEDS: NYSTATIN 15 GM POWDER UD BTL TOP SCH ×2 (08:40→17:40)
--- NOTE | 2018-04-17 09:13 | NUR ---
Per Rose with [facility]. Referral is with medical policy specialist, should have an answer today.
[2018-04-17] MEDS: CEFEPIME 2 GM/NS 0.9% 100 ML 100 ML IV SCH ×2 (12:30→23:59)
--- NOTE | 2018-04-17 14:43 | NUR ---
SPOKE WITH DAUGHTER CANDIS DIEZ [phone] SHE STATES SHE WANTS TO USE [facility] AND IT IS OKAY FOR HOSPICE TO CONTACT HER. SHE STATES FAMILY WILL BE COMING INTO [place]OWN AND WILL NEED OTHER FAMILY MEMBERS TO BE PRESENT FOR THE MEETING TO SIGN CONSENTS AND ACCEPTANCE PAPERS. WILL FAX FACE SHEET TO [phone]
--- NOTE | 2018-04-17 16:23 | NUR ---
Nutrition Intervention Note RD Recommendation(s) for Physician: - Continue TF of Glucerna1.2 at goal rate of 60 ml/hr (to provide 1728 kcal and 86 gm protein). - Water flushes and fluid management per MD. - Consider Hardy 1 packet BID to promote wound healing. - Recommend Vitamin C and Zinc Sulfate to promote wound healing. Plan of Care: RD following, TF rec's, monitoring for tolerance and adequacy Nutrition reason for involvement: Follow up RD Assessment 04/17: Pt was discussed during AM rounds. Possible hospice. Currently on IV abx. Per RICCARDO Escobedo, TF was running at 50mL/hr because gastric residual this AM was ~30mL. Spoke with RICCARDO Escobedo about advancing to goal rate of 60mL/hr and re-check gastric residual every 6-8hr. Per ASPEN guidelines, only hold TF when gastric residual >500mL. If gastric residual >250mL after a second check, consider Reglan. Consult RD when needed. Will continue to monitor and follow. 04/14: 67 YOM admitted from [place] for fever, pt seen today per PEG on admit and requiring EN. Pt with hx of severe dementia and no family at bedside at time of visit, unable to obtain nutrition hx. Wound care assessment noted, pt with multiple wounds upon admit. Pt discussed during am rounds. Chart reviewed. TF rec's provided and discussed with RN. Will monitor and continue to follow. Principal Problems/Diagnoses: fever, hyponatremia, UTI PMH: CVA with R HP, severe vascular dementia, DM2, HLD, GERD, hypothyroidism GI: PEG present, abdomen flat, soft, flatus present Skin: sacral stage IV PU, L hip stage I PU, L foot 5th metatarsal stage I PU Labs: 04/17: Na 128 L, BUN 5 L, Creatinine 0.44 L, glucose 155 H, Ca 7.8 L 04/14: Na 130, K 2.8, BUN 14, Cr 0.46, Gluc 70, POC Gluc 74-79 Meds: insulin, abx, IVF Ht: 225 lb Wt: 68 in BMI: 34.2 IBW: 154 lb Malnutrition Evaluation (04/14/18) The patient does not meet criteria for a specified degree of malnutrition at this time. Will re-evaluate at follow-up as appropriate. Nutrition Prescription (Diet Order): Glucerna 1.2 @65cc/hr Estimated Nutritional Needs: 5039-1239 calories/day (22-25 kcal/kg IBW) 70-105 g protein/day (1.5-2 g pro/kg IBW) Diet Adequacy: meeting calorie needs, meeting protein needs Diet Education Needs Assessment: Diet education not indicated, patient on temporary/transition diet. Pt on EN per PEG at [facility]. Nutrition Care Level: Mod Nutrition Diagnosis: Inadequate energy and protein intake related to impaired gastric passage as evidenced by PEG upon admit requiring EN. Goal: Patient will meet 75-100% of estimated needs by follow up Progress: Goal met Interventions: Composition, Rate, Route, Liquid supplement, Multivitamin/mineral supplement therapy, Collaboration with other providers Monitoring/Evaluation: Total energy intake, Total protein intake, Formula/Solution, Liquid supplement, Prescription medication Signed: Olga Mtz MS, RD, LD
[2018-04-18] VITALS (7 sets, daily range): BP systolic 103–145; BP diastolic 57–76
[2018-04-18] MEDS: SODIUM CHLORIDE 0.9% 1000ML 1,000 ML IV SCH ×3 (03:08→15:15)
[2018-04-18] MEDS: HYDROMORPHONE 2MG/ML 2 MG/ML ML IV PRN (04:07)
[2018-04-18] MEDS: VANCOMYCIN 1GM/NS 250 ML 250 ML IV SCH ×2 (04:18→15:15)
[2018-04-18] MEDS: INSULIN REGULAR, HUMAN 100 UNIT/1 ML 3ML VIAL SQ SCH ×4 (06:34→18:24)
--- NOTE | 2018-04-18 07:00 | NUR ---
SHIFT REPORT DONE WHILE ROUNDING ON PT WITH NIGHT RN. PT DENIES NEEDS AT THIS TIME.
[2018-04-18] MEDS: NYSTATIN 15 GM POWDER UD BTL TOP SCH ×2 (09:12→17:24)
[2018-04-18] MEDS: BALSAM PERU/CASTOR OIL 60 GM OINT...G. TP SCH (09:12)
[2018-04-18] MEDS: SILVER SULFADIAZINE 50GM CREAM TOP SCH ×2 (09:12→17:24)
[2018-04-18] MEDS: CEFEPIME 2 GM/NS 0.9% 100 ML 100 ML IV SCH (12:38)
--- NOTE | 2018-04-18 15:47 | NUR ---
Kylah Ayala, ROBINSON with [facility] spoke with pt's daughter Belkis Sandoval at bedside. Ms. Sandoval signed hospice paperwork. Per Kylah, the hospice nurse will be by later today to assess pt. Once pt has dc order, nursing to call [facility] to set up equipment and transportation [phone]. Pt is from [facility] and will return there on hospice. Rojelio RN informed of above. IMM letter delivered and explained to family. She verbalized understanding. Signed copy in chart. Copy to daughter.
--- NOTE | 2018-04-18 16:30 | Progress Note ---
DATE: INTERNAL MEDICINE PROGRESS NOTE SUBJECTIVE: This patient is being evaluated by hospice right now. He is nonverbal. PHYSICAL EXAMINATION HEART: Shows regular rhythm. Normal S1, S2 sounds. LUNGS: Clear bilaterally. ABDOMEN: Soft. Has PEG tube in place. VITAL SIGNS: Blood pressure 109/69, temperature 96.5 degrees Fahrenheit, heart rate 81 per minute, respiratory rate 18 per minute, oxygen saturation 100%. LABORATORY STUDIES: On the blood work, we have BMP with sodium of 128, potassium 3.6, chloride 94, CO2 28, BUN 5, creatinine 0.44, glucose 147. On the CBC, white blood count 6.63, hemoglobin 10.1, hematocrit 31.0, platelet count 356,000, PT 15.0, INR 1.08, AST 31, ALT 28, total bilirubin 0.4, alkaline phosphatase 180. FINAL IMPRESSION 1. Sepsis. 2. Aspiration pneumonia. 3. Uncontrolled diabetes mellitus type 2. 4. Dysphagia, on the PEG tube feedings. 5. Acute encephalopathy. 6. Hyponatremia. PLAN OF TREATMENT: We are going to continue with the current medication regimen which includes the following medications. She is going to be on cefepime 1 or 2 grams IV twice a day, normal saline 125 mL an hour, vancomycin 1 gram IV twice a day. Continue Tylenol 650 mg q.6 hours as needed for pain or fever, daily, D50 IV push as needed for hypoglycemia, Dilaudid 0.5 mg IV q.6 hours as needed for severe pain, nystatin topically twice a day, Zofran 4 mg IV q.4 hours as needed. Monitor blood sugar q.6 hours. Silver sulfadiazine 1 application topically to sacral area, stage 4, twice a day. Hospice is evaluating the patient due to the poor prognosis. Job#: [id number] FAMILIA
[2018-04-18] MEDS: SODIUM CHLORIDE 1 GM TAB PO SCH (21:49)
--- NOTE | 2018-04-18 22:37 | NUR ---
CHANGED DRESSING TO RIGHT IJ AT THIS TIME.
[2018-04-19] VITALS (7 sets, daily range): BP systolic 101–136; BP diastolic 58–79
[2018-04-19] MEDS: CEFEPIME 2 GM/NS 0.9% 100 ML 100 ML IV SCH
[2018-04-19] MEDS: VANCOMYCIN 1GM/NS 250 ML 250 ML IV SCH (03:15)
--- NOTE | 2018-04-19 05:20 | NUR ---
BED BATH PERFORMED. CHANGED DRESSING TO SACRUM. REPOSITIONED PT.
[2018-04-19 05:25] LABS: ANION GAP 10.9 mmol/L (8-16); BLOOD UREA NITROGEN 10 mg/dL (7-26); BUN/CREATININE RATIO 20 (6-25); CARBON DIOXIDE 26 mmol/L (22-29); CHLORIDE 91 mmol/L (98-107); EST GLOMERULAR FILTRATION RATE > 60 ML/MIN (60-); GLUCOSE 150 mg/dL (74-118); POTASSIUM 3.9 mmol/L (3.5-5.1); SODIUM 124 mmol/L (136-145)
[2018-04-19] MEDS: INSULIN REGULAR, HUMAN 100 UNIT/1 ML 3ML VIAL SQ SCH ×4 (06:14→18:29)
--- NOTE | 2018-04-19 06:14 | NUR ---
NO RESIDUAL ON TUBE FEEDING.
--- NOTE | 2018-04-19 07:00 | NUR ---
SHIFT REPORT DONE WHILE ROUNDING ON PT WITH NIGHT RN. PT DENIES NEEDS AT THIS TIME.
[2018-04-19] MEDS: SILVER SULFADIAZINE 50GM CREAM TOP SCH ×2 (08:54→17:12)
[2018-04-19] MEDS: SODIUM CHLORIDE 1 GM TAB PO SCH ×3 (08:54→21:28)
[2018-04-19] MEDS: NYSTATIN 15 GM POWDER UD BTL TOP SCH ×2 (08:54→17:11)
[2018-04-19] MEDS: BALSAM PERU/CASTOR OIL 60 GM OINT...G. TP SCH (08:55)
[2018-04-19] MEDS ORDERED: CEFTRIAXONE SOD 1 GM/NS 50 ML 50 ML IV SCH (14:45)
[2018-04-19] MEDS ORDERED: CEFEPIME 1GM/NS 0.9% 50 ML 50 ML IV SCH (15:15)
--- NOTE | 2018-04-19 16:17 | Progress Note ---
DATE: INTERNAL MEDICINE PROGRESS NOTE SUBJECTIVE: She is nonverbal. Hospice has been evaluated the patient. PHYSICAL EXAM VITAL SIGNS: Blood pressure 121/66, temperature 99.8, heart rate 78 per minute, respiratory rate 18 per minute, ox saturation 97%. HEART: Shows regular rhythm. Normal S1 and S2 sounds. LUNGS: Clear bilaterally. ABDOMEN: Soft. EXTREMITIES: Show 1+ bilateral pedal edema. LABORATORY DATA: On the BMP, sodium 124, potassium 3.9, chloride 91, CO2 of 26, BUN 10, creatinine 0.50, glucose 150. On the CBC, white blood count 6.63, hemoglobin 10.1, hematocrit 31.0, platelet count 356,000. PT 15.0, INR 1.08. AST 31, ALT 28, total bilirubin 0.4, alkaline phosphatase of 80. FINAL IMPRESSION 1. Sepsis. 2. Aspiration pneumonia. 3. Hyponatremia. 4. Uncontrolled diabetes mellitus type 2. 5. Dysphagia. 6. Metabolic encephalopathy. 7. Hyponatremia. PLAN OF TREATMENT: Hospice has been evaluated the patient. In the meantime, continue vancomycin 1 gram IV twice a day, Zofran 4 mg IV q.4 hours, D50 IV push as needed for hypoglycemia, Tylenol 650 mg by PEG tube q.6 hours as needed for pain or fever, Dilaudid 0.5 mg IV q.6 hours as needed for severe pain. Continue monitoring blood sugar q.6 hours. Continue silver sulfadiazine one application topically twice a day. Continue B[place] castor oil daily, nystatin twice a day, sodium chloride 2 grams 3 times a day. We are going to have [facility] tomorrow. Dr. Eduardo has been consulted for infectious diseases. I think the patient got sepsis with streptococcus and also UTI with gram-negative bacteria also. Job#: [id number] EZIO
--- NOTE | 2018-04-19 18:11 | Consultation ---
DATE OF CONSULTATION: REASON FOR CONSULTATION: Fever and sepsis. HISTORY OF PRESENT ILLNESS: This patient is a 67-year-old white male, transferred from a local nursing facility in [facility] to [facility] here in [place] because of fever and chills. In the emergency room, he was found to have a white count of 13.4, 88% segs. Patient does not provide any information. History was taken mainly from the chart. He was admitted, started on intravenous antibiotic. 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 PAST SURGICAL HISTORY: PEG tube placement. MEDICATIONS AT HOME: He is on amlodipine, vitamin C, aspirin, atorvastatin, BuSpar, clonidine, famotidine, insulin. REVIEW OF SYSTEMS: Could not be obtained. She is currently from a correction. Patient was admitted. Urine culture showing Providencia. Blood cultures showing streptococcus group A. LABORATORY DATA: Reviewed. His white count 8.7, hemoglobin 10.8. Sodium 124, potassium 3.9, and creatinine 0.50. Patient was started on insulin and he is on vancomycin. Patient's review of system could not be obtained. His chart reviewed. Apparently, he is going to be going to hospice in the near future. PHYSICAL EXAMINATION: GENERAL: He is noncommunicative. He is contracted. HEENT: Head normocephalic. CHEST: Few crackles bilateral at the bases. COR: S1 and S2. No S3 and S4, murmur. ABDOMEN: Soft. IMPRESSION AND PLAN: Sepsis on admission, bacteremia secondary to streptococcus. W can put him on Rocephin 1 gram q.12 for the time being, but should he be admitted to the hospice, can switch to oral Levaquin to finish 14 days. Colonization with multi-drug resistant, no need to treat . History of stroke. History of dementia and contraction. History of aspiration. History of alcoholism. We will discuss with attending in the morning. Job#: [id number] GUSTAVO
[2018-04-19] MEDS: HYDROMORPHONE 2MG/ML 2 MG/ML ML IV PRN (18:23)
[2018-04-19] MEDS: AZTREONAM 1 GM/NS 50 ML 50 ML IV SCH (21:28)
--- NOTE | 2018-04-19 22:18 | NUR ---
BED BATH DONE. CHANGED DRESSING TO SACRUM. REPOSITIONED PT.
[2018-04-20] MEDS: INSULIN REGULAR, HUMAN 100 UNIT/1 ML 3ML VIAL SQ SCH ×3 (00:11→12:00)
[2018-04-20 00:39] VITALS: BP 116/66
[2018-04-20] MEDS: HYDROMORPHONE 2MG/ML 2 MG/ML ML IV PRN ×2 (01:12→10:37)
[2018-04-20 05:40] LABS: BLOOD UREA NITROGEN 11 mg/dL (7-26); BUN/CREATININE RATIO 23 (6-25); CALCIUM 7.9 mg/dL (8.4-10.2); CARBON DIOXIDE 27 mmol/L (22-29); CHLORIDE 92 mmol/L (98-107); CREATININE, SERUM 0.48 mg/dL (0.72-1.25); EST GLOMERULAR FILTRATION RATE > 60 ML/MIN (60-); GLUCOSE 149 mg/dL (74-118); SODIUM 126 mmol/L (136-145)
[2018-04-20] MEDS: AZTREONAM 1 GM/NS 50 ML 50 ML IV SCH ×2 (05:40→14:15)
[2018-04-20 05:47] VITALS: BP 119/61
--- NOTE | 2018-04-20 06:31 | NUR ---
NO RESIDUAL NOTED ON TUBE FEEDING.
[2018-04-20 08:00] VITALS: BP 107/62
--- NOTE | 2018-04-20 08:00 | NUR ---
Tube feed solution changed and the pt. checked for residual with 0 return. h2o flush at this time. The pt. is positioned on the right side and is quiet. The side rails are up time 3.The call light is within reach although the pt. is contracted and non verbal.
[2018-04-20 08:30] VITALS: BP 107/62
[2018-04-20] MEDS: NYSTATIN 15 GM POWDER UD BTL TOP SCH (08:58)
[2018-04-20] MEDS: SODIUM CHLORIDE 1 GM TAB PO SCH ×2 (08:58→15:28)
[2018-04-20] MEDS: SILVER SULFADIAZINE 50GM CREAM TOP SCH ×2 (08:58→15:28)
[2018-04-20] MEDS: BALSAM PERU/CASTOR OIL 60 GM OINT...G. TP SCH (08:58)
--- NOTE | 2018-04-20 10:46 | NUR ---
The pt. positioned on the left side and is moaning loudly. The pt. was medicated for pain at this time.
[2018-04-20 12:00] VITALS: BP 115/60
--- NOTE | 2018-04-20 13:22 | NUR ---
RECEIVED CALL FROM [facility], THEY ARE REQUESTING CLINICALS. I FAXED TO [phone]
--- NOTE | 2018-04-20 15:14 | NUR ---
A call was received from [facility] and the pt. will be leaving at 1715.
--- NOTE | 2018-04-20 15:28 | NUR ---
WOUND CARE CONSULTATION: FOLLOW UP VISIT Patient admitted from [facility] for Fever, Hyponatremia, UTI. Sacral Wound Stage IV. HX: Contractures, PEG+, Anguiano. Delmer Score 9 [address] Strict PUP. Patient Visit: - Perineal Care in progress and nurse at bedside performing daily WC at time of visit. - Contracted x4 - HOB elevated 30 degrees. - PEG + -Sacral - Stage IV- Pressure Ulcer- palpable bone, 10% slough with scattered areas of DTI. 90% granulation tissue. Sacral wound Improving. IMPRESSION: 1. Left Foot 5th Met Head - Stage I - Pressure Ulcer - POA. Stable 3. Sacral - Stage IV- Pressure Ulcer- POA - Slow Healing. 4. Left Hip - Stage 1 Pressure Ulcer - POA - Stable RECOMMENDATION: Continue Current treatment plan. 1. Left Foot 5th Met Head - Stage I - Pressure Ulcer - POA: - Cleanse wound with NS and 4x4 Gauze. - Apply Venelex Ointment and cover with Allevyn Foam Heel Dressing Daily 2. Abdominal Fold - Dermatologic Rash - Yeast. - Cleanse area with Mild Soap and Water and Pat Dry Thoroughly. - Apply Nystatin Powder BID and PRN Soiling. 3. Sacral - Stage IV- Pressure Ulcer- POA - Cleanse wound with NS and 4x4 Gauze. - Apply Silvadene Saturated 4x4 gauze to base of wound, then Lightly pack with Algisite and cover with Allevyn Foam Sacrum Dressing Daily 4. Left Hip - Stage 1 Pressure Ulcer - POA: - Cleanse wound with NS and 4x4 Gauze. - Apply Venelex Ointment and cover with Allevyn Foam Heel Dressing Daily 5. Continue Alternating Pressure Air Mattress 6. Continue Bilateral Heel Protectors - Offload Heels with Pillows while in bed. 7. Turn and Reposition every 2 hours ( "Bridge"./ offload sacrum with pillows/ foam wedges to reduce pressure to sacrum). Thank you for consulting with . DC PLANNING: Dressings appropriate for palliative care. Continue current treatment plan. Hospice. Addendum: 04/20/18 at 1538 by Demarco Jose RN Amended: Links added.
--- NOTE | 2018-04-20 18:05 | NUR ---
The pt. has been discharged to [facility] with iv remaining and feeding tube flushed and patent. The pt. was transported via [facility].
--- NOTE | 2018-04-21 14:54 | NUR ---
June FROM [facility] CALLED TO VERIFY DISCHARGE DATE AND TIME REFERENCE NUMBER [id number] RETURNED CALL AND LEFT MESSAGE THAT PATIENT DISCHARGED YESTERDAY AT 5PM TO [phone].
== END 2018-04-20 18:00 | disposition hospice, inpatient (51) | DRG 871 ==
LOC: ER 21:00 → ERHOLD 23:38 → UNDOADMIN 04-12 00:19 → ERHOLD 04-12 00:19 → ICU 04-12 12:49 → ERHOLD 04-12 12:49 → MED/SURG2 04-14 22:26
PROC: 02HV33Z Insertion of Infusion Device into Superior Vena Cava, Percutaneous Approach (ICD-10-PCS; principal; 2018-04-13)
DX: A40.9 Streptococcal sepsis, unspecified (principal); L89.154 Pressure ulcer of sacral region, stage 4; J15.6 Pneumonia due to other Gram-negative bacteria; J69.0 Pneumonitis due to inhalation of food and vomit; G93.41 Metabolic encephalopathy; I69.351 Hemiplegia and hemiparesis following cerebral infarction affecting right dominant side; E87.1 Hypo-osmolality and hyponatremia; N39.0 Urinary tract infection, site not specified; R65.20 Severe sepsis without septic shock; F01.50 Vascular dementia, unspecified severity, without behavioral disturbance, psychotic disturbance, mood disturbance, and anxiety; F10.21 Alcohol dependence, in remission; Z93.1 Gastrostomy status; M62.422 Contracture of muscle, left upper arm; M62.462 Contracture of muscle, left lower leg; Z74.01 Bed confinement status; E11.65 Type 2 diabetes mellitus with hyperglycemia; Z79.4 Long term (current) use of insulin; Z79.899 Other long term (current) drug therapy
CPT/HCPCS: 36415; 36556; 71045; 74470; 76937; 80048; 80053; 80202; 81001; 82550; 82553; 82948; 83605; 83735; 83880; 84100; 84484; 85025; 85610; 87040; 87071; 87086; 87186; 87205; 87400; 93005; 96361; 96372; 99284; C1751; C1769; J0456; J0696; J2405; J3370; J3480; J7030